=== PATIENT | male | born 1990 | race Caucasian/White ===

== ENCOUNTER 2018-02-22 12:06 | Emergency (ER) | payer MEDICAID ==
[~2018-02-22] VITALS: Ht 188 cm; Wt 68.9 kg
[2018-02-22 12:15] VITALS: Ht 188 cm; Wt 68.9 kg
[2018-02-22 15:03] VITALS: BP 120/85
== END 2018-02-22 15:03 | disposition home or self-care (01) ==
LOC: ED 12:06
DX: S02.2XXA Fracture of nasal bones, initial encounter for closed fracture (principal); Z91.011 Allergy to milk products; Y04.8XXA Assault by other bodily force, initial encounter; Y93.89 Activity, other specified; Y92.89 Other specified places as the place of occurrence of the external cause; Y99.8 Other external cause status